=== PATIENT | male | born 1965 | race American Indian/Alaskan Native ===

== ENCOUNTER 2021-11-10 07:32 | Day surgery (SDC) | payer MEDICARE ==
[2021-11-10] MEDS ORDERED: ASPIRIN EC 325 MG TAB PO NR (08:06)
[2021-11-10 08:55] LABS: Basophils # (Auto) 0.1 K/mm3 (0.0-0.1); Basophils % (Auto) 0.8 % (0.0-1.8); Eosinophils # (Auto) 0.1 K/mm3 (0.0-0.4); Eosinophils % (Auto) 0.8 % (0.0-4.3); Hematocrit 42.1 % (35.5-45.6); Hemoglobin 14.6 gm/dl (11.8-15.2); Lymphocytes # (Auto) 2.5 K/mm3 (1.2-5.4); Lymphocytes % (Auto) 28.8 % (13.4-35.0); Mean Corpuscular HGB Conc 35 % (32-34); Mean Corpuscular Volume 93 fl (84-94); Monocytes # (Auto) 0.8 K/mm3 (0.0-0.8); Monocytes % (Auto) 8.9 % (0.0-7.3); Platelet Count 206 K/mm3 (140-440); Red Blood Count 4.52 M/mm3 (3.65-5.03)
[2021-11-10] MEDS: SODIUM CHLORIDE 0.9% 500 ML 500 ML IV SCH ×2 (08:55→10:50)
[2021-11-10 09:09] LABS: BUN/Creatinine Ratio 12; Blood Urea Nitrogen 12 mg/dL (9-20); Calcium 9.6 mg/dL (8.4-10.2); Hemolysis Index 12
[2021-11-10 09:25] LABS: INR 0.96 (0.87-1.13)
[2021-11-10] MEDS ORDERED: HEPARIN 10,000 UNITS/10 ML VIAL ONE (10:21)
[2021-11-10] MEDS ORDERED: NITROGLYCERIN SYRINGE 3 ML ONE (10:21)
[2021-11-10] MEDS ORDERED: VERAPAMIL 5 MG/2 ML INJ ONE (10:21)
[2021-11-10] MEDS ORDERED: HEPARIN/NS 5000 UNIT/500ML 1,000 ML IR ONE (10:21)
[2021-11-10] MEDS ORDERED: LIDOCAINE (1%) 10 MG/1 ML VIAL 20 ML MDV ONE (10:22)
[2021-11-10] MEDS ORDERED: fentaNYL 100 MCG/2 ML INJ ONE (10:37)
[2021-11-10] MEDS: MIDAZOLAM 2 MG/2 ML INJ ONE ×2 (10:50→11:00)
[2021-11-10] MEDS ORDERED: traMADol 50 MG TAB PO PRN (11:43)
[2021-11-10] MEDS ORDERED: HYDROcodone/ACETAMINOPHEN 5-325 MG TAB PO PRN (11:43)
--- NOTE | 2021-11-10 12:24 | Short Stay Summary ---
Short Stay Documentation Date of service: 11/10/21 - History H&P: obtained from office - Allergies and Medications Current Medications: Allergies No Known Allergies Allergy (Verified 04/20/16 08:42) Home Medications Medication Instructions Recorded Confirmed Last Taken Type Apixaban [Eliquis] 5 mg PO BID 11/10/21 11/10/21 11/10/21 09:44 History 11/08/21 Montelukast [Singulair] 10 mg PO DAILY 11/10/21 11/10/21 11/02/21 History 10 mg Ranolazine ER [Ranexa ER] 500 mg PO BID 30 Days #60 11/10/21 Unknown Rx tab.er.12h Sildenafil Citrate [Viagra] 50 mg PO PRN PRN 11/10/21 11/10/21 11/02/21 History 50 mg dilTIAZem CD [Cardizem CD] 240 mg PO DAILY 11/10/21 11/09/21 History 240 mg Active Medications Hydrocodone Bitart/Acetaminophen (Hydrocodone/Acetaminophen 5-325 Mg Tab) 1 each PO Q4H PRN PRN Reason: Pain, Moderate (4-6) Sodium Chloride (Nacl 0.9% 500 Ml) 500 mls @ 50 mls/hr IV DIRECT JESSICA Stop: 11/10/21 18:59 Last Admin: 11/10/21 10:50 Dose: 50 mls/hr Tramadol HCl (Tramadol 50 Mg Tab) 50 mg PO Q4H PRN PRN Reason: Pain, Mild (1-3) - Physical exam Integumentary: other (Dressing clean dry and intact with no signs of bleeding or hematoma) - Brief post op/procedure progress note Date of procedure: 11/10/21 Pre-op diagnosis: Chest pain Post-op diagnosis: other (Normal coronary) Anesthesia: local Estimated blood loss: minimal - Hospital course Hospital course: Patient presents today for cardiac cath due to complaint of recurrent chest pain. Patient was found to have normal coronaries with no intervention indicate d. Patient tolerated procedure well with no complications through right radial site. Patient to be discharged home and started on Ranexa 500 mg p.o. twice daily. Patient also instructed to resume Eliquis today. 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 Phone #[phone]) Prescriptions: Ranolazine ER [Ranexa ER] 500 mg PO BID 30 Days #60 tab.er.12h
--- NOTE | 2021-11-10 12:50 | Cardiac Catherization Report ---
DATE OF PROCEDURE: 11/10/2021 REFERRING PHYSICIAN: Laz Beltrán MD. INDICATIONS FOR PROCEDURE: The patient is a very pleasant 56-year-old -[place] gentleman with history of paroxysmal atrial fibrillation, hypertension, erectile dysfunction, who presents here with recurrent chest pain despite normal stress test over the past several months. He continued to have recurrent chest pain, multiple office visits despite a negative treadmill stress test. Discussed the options with him. He elected to proceed with left heart catheterization. Risks, benefits, potential alternatives explained at length prior to obtaining informed consent. PROCEDURE IN DETAIL: The patient was brought to labor trainer in a postabsorptive state, prepped and draped in sterile fashion. Arley's test in right hand is normal. 2 mL of 2% lidocaine used to anesthetize the right wrist. A standard 6-Albanian hydrophilic sheath used to cannulate the right radial artery via modified Seldinger technique. All exchanges performed to exchange a J-tip guidewire. JL3.5 catheter was used to engage the left main. No dampening or ventricularization. Cineangiography performed in all projections. JR4 catheter used to cross the aortic valve under fluoroscopic guidance. Left ventriculography performed rather FRENCH projections via hand injections, catheter flushed. Manual pullback performed with continuous pressure monitoring. Catheter was right coronary. No dampening or ventricularization. Cineangiography performed in all multiple projections. Next, catheter removed from the body of wire, sheath removed. Manual pressure used to achieve hemostasis. I directly supervised the administration of moderate sedation with fentanyl and Versed from 10:50 a.m. to 11:10 a.m. No immediate complications. DATA: The patient remained in normal sinus rhythm throughout the procedure. Aortic pressure is 150/70, LV pressure is 150 with EDP of 17. Left ventriculography reveals normal systolic performance, estimated ejection fraction 55-60%. No evidence of aortic stenosis. CORONARY ANATOMY: This is a right dominant system. Left main without significant disease, trifurcates into left anterior descending, left circumflex. Left ramus intermedius, left circumflex, courses AV groove, small diminutive to AV groove circumflex. Large OM trunk. No significant disease. Ramus intermedius courses the medial aspect of the lateral wall. No significant disease. LAD is a moderate-sized vessel, courses anterior intergroove, wraps around the apex. There is an intramyocardial segment or bridge in the mid LAD with a minimal diastolic collapse, but no obstructive disease identified. Right coronary is a moderate sized vessel, courses AV groove, distally bifurcates in the posterior descending and posterolateral branches. No discrete stenoses noted. CONCLUSIONS: 1. No angiographic evidence of significant epicardial coronary artery disease in this right dominant system. A. 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 2. Normal left ventricular systolic performance, estimated ejection fraction 55-60%. 3. Normal LVEDP. 4. No evidence of aortic stenosis. The patient is clinically stable, chest pain free. We will start Ranexa. Continue other medicines. Restart Eliquis today. Results of procedure explained to the patient at length. All questions were addressed. A standard radial care. Follow up with me in the office. TID: [id number] RECEIPT: [id number] SIRIA/AMBERLY
[2021-11-10 13:34] VITALS: BP 119/57
--- NOTE | 2021-11-10 18:11 | Electrocardiograph Report ---
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
== END 2021-11-10 14:48 | disposition home or self-care (01) ==
LOC: CATHLABREC 07:32
PROVIDERS: ATTEND Internal Medicine
DX: R07.89 Other chest pain (principal); I48.0 Paroxysmal atrial fibrillation; I10 Essential (primary) hypertension; K21.9 Gastro-esophageal reflux disease without esophagitis; Z80.3 Family history of malignant neoplasm of breast; Z79.899 Other long term (current) drug therapy; Z80.8 Family history of malignant neoplasm of other organs or systems; Z79.01 Long term (current) use of anticoagulants
CPT/HCPCS: 36415; 80048; 85025; 85610; 85730; 93005; 93458; 99156; C1894; J1644; J1815; J2250; J3010; J3490; J7040; Q9967